=== PATIENT | male | born 1950 | race Caucasian/White ===

== ENCOUNTER 2016-10-31 14:03 | Inpatient (IN) | payer MEDICARE, OTHER ==
--- NOTE | 2016-11-05 11:18 | NUR ---
DISCUSSED DISCHARGE INSTRUCTIONS WITH PATIENT. INCISION TO BACK COVERED WITH MEPILEX C/D/I, NO S/S OF INFECTION NOTED. PT IN STABLE CONDITION. D/C HOME WITH
--- NOTE | 2016-11-05 14:41 | NUR ---
PT. D/C HOME THIS DATE. PT. REQUESTED [facility] FOR PT/OT AND NURSING ASSESSMENT. [facility] TO DELIVER A CANE AND 08/04 UPON DISCHARGE. D/C NOTICE AND QUESTIONNAIRE GIVEN.
== END 2016-11-05 12:20 | disposition home or self-care (01) | DRG 552 ==
LOC: FSNU 14:03
PROVIDERS: ADMIT Internal Medicine
DX: M43.16 Spondylolisthesis, lumbar region (principal); D62 Acute posthemorrhagic anemia; I10 Essential (primary) hypertension; Z47.89 Encounter for other orthopedic aftercare; F41.8 Other specified anxiety disorders; Z98.84 Bariatric surgery status; Z88.6 Allergy status to analgesic agent; Z88.2 Allergy status to sulfonamides; Z88.1 Allergy status to other antibiotic agents; Z87.891 Personal history of nicotine dependence; Z80.42 Family history of malignant neoplasm of prostate; Z82.3 Family history of stroke; Z86.718 Personal history of other venous thrombosis and embolism
CPT/HCPCS: 97110; 97116; 97162; 97166; 97530; 97530-GP; 97535